=== PATIENT | female | born 1950 | race Caucasian/White ===

== ENCOUNTER 2017-04-20 11:03 | Day surgery (SDC) | payer BC ==
[2017-04-19 13:30] VITALS: BMI 30.7
[~2017-04-20] VITALS: Ht 154.9 cm; Wt 72.0 kg
[2017-04-20] VITALS (27 sets, daily range): BP systolic 102–152; BP diastolic 37–76; PULSE 58–80; RESP 16–21; Ht 154.9 cm; Wt 72.0 kg
[~2017-04-20 11:03] MED LIST: CEFAZOLIN 2 GM/50 ML (PMX) 50 ML IVPB ONE; GLYCOPYRROLATE 0.4 MG INJ ONE; NEOSTIGMINE 3 MG/3 ML SYRINGE ONE; SOD CHLORIDE 0.9% 1,000 ML IV ONE
[2017-04-20] MEDS ORDERED: CEFAZOLIN 2 GM/50 ML (PMX) 50 ML IVPB ONE (12:30)
[2017-04-20] MEDS: SOD CHLORIDE 0.9% 1,000 ML IV SCH ×2 (12:30→17:53)
[2017-04-20 13:01] LABS: ADD SCAN DIFF NO
[2017-04-20 13:03] LABS: BASOPHILS % 0.6 % (0.0-2.0); EOSINOPHILS # 0.2 10^3/ul (0.0-0.5); EOSINOPHILS % 4.7 % (0.0-7.0); HEMATOCRIT 36.2 % (37.0-47.0); HEMOGLOBIN 12.2 g/dl (12.0-16.0); LYMPHOCYTES # 2.3 10^3/ul (0.8-2.9); LYMPHOCYTES % 49.4 % (15.0-51.0); MEAN CORPUSCULAR HGB CONC 33.7 g/dl (32.0-37.0); MEAN CORPUSCULAR VOLUME 86.2 fl (82.0-101.0); MEAN PLATELET VOLUME 9.6 fl (7.4-10.4); MONOCYTE # 0.3 10^3/ul (0.3-0.9); MONOCYTES % 5.6 % (0.0-11.0); NEUTROPHIL # 1.9 10^3/ul (1.6-7.5); NEUTROPHILS % 39.7 % (39.0-77.0); PLATELET COUNT 242 10^3/UL (140-415); RED CELL DISTRIBUTION WIDTH 12.4 % (11.5-14.5); WHITE BLOOD COUNT 4.7 10^3/ul (4.8-10.8)
[2017-04-20 13:18] LABS: INR 0.93; PROTIME 12.5 Sec (12.2-14.2)
[2017-04-20 13:19] LABS: PARTIAL THROMBOPLASTIN TIME 28.7 Sec (25.0-35.0)
[2017-04-20 13:21] LABS: ALBUMIN 4.7 g/dl (3.3-4.9); ALBUMIN/GLOBULIN RATIO 1.74; BILIRUBIN,INDIRECT 0.4 mg/dl (0-1.1); BILIRUBIN,TOTAL 0.4 mg/dl (0.2-1.3); TOTAL PROTEIN 7.4 g/dl (6.1-8.1)
[2017-04-20] MEDS ORDERED: ISOSULFAN BLUE 1% 5 ML INJ SC ONE (13:22)
[2017-04-20 13:31] LABS: CALCIUM 9.2 mg/dl (8.4-10.2); CREATININE 0.7 mg/dl (0.44-1.00); POTASSIUM 3.9 mmol/L (3.5-5.1)
[2017-04-20] MEDS ORDERED: MIDAZOLAM 1 MG/ML 2 ML INJ ONE (13:49)
[2017-04-20] MEDS ORDERED: PROPOFOL 20 ML ONE (13:49)
[2017-04-20] MEDS ORDERED: VECURONIUM 10 MG VIAL ONE (13:50)
[2017-04-20] MEDS ORDERED: LIDOCAINE 2% (SDV) 5 ML INJ ONE (13:50)
[2017-04-20] MEDS ORDERED: DEXAMETHASONE 4 MG/ML 1 ML INJ ONE (13:50)
[2017-04-20] MEDS ORDERED: PHENYLephrine (100 MCG/ML) 5ML SYG ONE (13:50)
[2017-04-20] MEDS ORDERED: ONDANSETRON 4 MG INJ ONE (13:50)
--- NOTE | 2017-04-20 15:42 | RADRPT ---
Vent Rate: 65 bpm RR Interval: 0 msec SD Interval: 174 msec QRS Duration: 72 msec QT Interval: 402 msec QTC Interval: 418 msec P-R-T [place]: 45 - 5 - 27 degrees Normal sinus rhythm Low voltage QRS Cannot rule out Anterior infarct , age undetermined Abnormal ECG Electronically Signed By: Virgilio Bhandari [id number]
--- NOTE | 2017-04-20 15:52 | OPR ---
DATE OF OPERATION: 04/20/2017 PREOPERATIVE DIAGNOSIS: Invasive cancer, left breast. POSTOPERATIVE DIAGNOSIS: Invasive cancer, left breast. OPERATION PERFORMED: Left modified radical mastectomy. ANESTHESIA: General. ANESTHESIA: Nurse channel cementer, Kike . SURGEON: Reyes Clarke MD BRAKE HOLDER: Mir Mccabe MD INDICATIONS FOR PROCEDURE: The patient is a 66-year-old female who noticed a mass in her left breas t. She underwent radiographic workup and subsequent biopsy and was found to have an approximately 1 .4-cm invasive tumor on core biopsy. She was initially offered breast conservation surgery with par tial mastectomy and axillary dissection utilizing sentinel lymph node technique; however, both her a nd her family were strongly interested mastectomy, as the patient did not want to have radiation. S he requested modified radical mastectomy. She consented and was scheduled for surgery. DESCRIPTION OF PROCEDURE: The patient was brought to the operating theater and placed under general endotracheal tube anesthesia. The left breast was prepped and draped in the usual sterile fashion. A planned elliptical incision was demarcated with a marking pen around the nipple areolar complex, including the skin overlying the tumor. It was carried out with a 15 blade scalpel. The subcutaneo us tissue was dissected with cautery. The skin edges were then elevated with Allis Hubbard clamps and skin flaps were developed using cautery, first superiorly to the clavicle, then medially to the gomez rnal border, inferiorly to the inframammary fold, and laterally until the latissimus dorsi muscle wa s identified throughout its course. Mastectomy then took place from medial to lateral using cautery . At the border of the pectoralis major muscle, the pectoralis minor muscle was identified with katia nt dissection along the chest wall. The long thoracic nerve was identified and kept out of harm's w ay. More superiorly, the axillary vein and thoracodorsal neurovascular bundle were identified and k ept out of harm's way. Node-bearing tissue between the long thoracic nerve and the thoracodorsal ne rve was meticulously dissected with the LigaSure device. There were a couple of suspicious firm lym ph nodes that were sent for intraoperative analysis, which was performed by attending pathologist, Kavita Waggoner. They were negative for definite evidence of malignancy. Subsequently a decision was mad e to not take additional nodes. Therefore, the remaining connective tissue attachments to the latis simus dorsi were transected with cautery. The specimen was oriented, removed and sent for permanent pathologic analysis. The wound was irrigated. Minimal bleeding was controlled with cautery. Two #10 flat Huey-Villarreal drains were then brought through the left mid axillary line. One was cut to size and laid within the axilla, the other was cut to size and laid over the pectoralis major muscle . Both drains were secured in place with 2-0 nylon sutures. The skin was then reapproximated with skin travis. The patient tolerated procedure well. Estimated blood loss was 40 mL. There were no complications and the patient was transported in stable condition to the recovery room, where a cir cumferential compression dressing was applied. Dictated By: REYES MARCOS/RIKI Conf#: [id number] DID#: [id number]
[2017-04-20] MEDS ORDERED: OXYCODONE/ACETAMINOPHEN (5/325) TAB PO PRN ×2 (16:00)
[2017-04-20] MEDS ORDERED: ACETAMINOPHEN 1000MG/100ML IV 100 ML IVPB PRN (16:00)
[2017-04-20] MEDS ORDERED: ONDANSETRON 4 MG INJ IV PRN ×2 (16:00)
[2017-04-20] MEDS ORDERED: EPHEDrine SULFATE 50 MG/5 ML SYG IV PRN (16:00)
[2017-04-20] MEDS ORDERED: HYDROmorphONE (0.2 MG/ML) 10ML SYG IV PRN ×3 (16:00)
[2017-04-20] MEDS ORDERED: LABETALOL HCL 20MG INJ IV PRN (16:00)
[2017-04-20] MEDS ORDERED: morphine 2 MG INJ IV PRN (16:00)
[2017-04-20] MEDS ORDERED: METOCLOPRAMIDE 10 MG INJ IV PRN (16:00)
[2017-04-20] MEDS: D5W-0.45 NACL + KCL 20 MEQ 1,000 ML IV SCH ×2 (17:53→23:39)
--- NOTE | 2017-04-20 18:04 | RADRPT ---
PROCEDURE: XR Chest. CLINICAL INDICATION: Shortness of breath. Postop. TECHNIQUE: Single frontal view. COMPARISON: None. FINDINGS: There is mild atelectasis at the lung bases with right worse than left. The lungs are otherwise moise ar. There has been left-sided thoracic surgery with multiple skin travis and surgical drain noted. The heart size is normal. There is no pleural effusion. There is no pneumothorax. IMPRESSION: 1. Mild atelectasis at the lung bases with right worse than left. 2. Prior left-sided thoracic surgery. 3. Otherwise normal chest x-ray. RPTAT: QQ .Kb Reyes MD, MD Date Time Electronically viewed and signed by .Kb Reyes MD, MD on 04/20/2017 18:04 .R/
--- NOTE | 2017-04-20 18:52 | HP ---
DATE OF ADMISSION: 04/20/2017 CHIEF COMPLAINT AND HISTORY OF PRESENT ILLNESS: The patient is a 66-year-old female who was seen b ezra Clarke as an outpatient. The patient noticed a left breast mass and subsequently underwent wor kup which included biopsy and was found to have invasive tumor. The patient was brought in to [facility] today and underwent left modified radical mastectomy. The patient does have postoperative pain and is being admitted for further evaluation and management. The patient denied any recent fever or chills. No history of vomiting. No history of diarrhea. No previous history of coronary artery d isease, hypertension or diabetes. The patient has a history of some sort of thyroid disorder, detai ls not available. The patient was not on any medication. No reported leg edema. No reported resti ng leg pain. PAST SURGICAL HISTORY: None. ALLERGIES: NONE. SOCIAL HISTORY: No smoking, no alcohol. FAMILY HISTORY: Noncontributory. PHYSICAL EXAMINATION: GENERAL: The patient is conscious, awake, alert. VITAL SIGNS: Temperature 98.3, pulse 66, respirations 18, blood pressure 102/54, O2 saturation 99% on room air. HEENT: No eye discharge or redness. Nose and ears normal externally. Oropharynx clear. NECK: No mass. LUNGS: Clear to auscultation. CARDIOVASCULAR: S1, S2 normal. No murmur. ABDOMEN: Soft, nondistended, nontender. EXTREMITIES: No leg edema. Pedal pulses palpable. SKIN: Without rash. NEUROLOGIC: The patient is awake, alert with no gross focal deficit. LABORATORY DATA: WBC 4.7, hemoglobin 12.2, platelets 242. Sodium 143, potassium 3.9, BUN 16, creat inine 0.7, glucose 103. AST 29, ALT 48, alkaline phosphatase 106. The patient did not have any preop chest x-ray, however, patient did have a postoperative chest x-ra y which revealed mild atelectasis in the left base. IMPRESSION: Left breast invasive cancer, status post left modified radical mastectomy. PLAN: The patient admitted on medical floor. The patient will be started on clear liquid diet, whi ch will be advanced as tolerated. I have explained to the patient's family as well as the patient's nurse to use incentive spirometry every 1 hour while awake. We will obtain TSH and T4 tomorrow. F or deep venous thrombosis prophylaxis, the patient will have SCD. For pain control, the patient calin l be started on IV Tylenol, Percocet and IV morphine. Plan of care discussed with nursing staff as well as patient's family. Dictated By: ADENIKE LOCKETT/RIKI Conf#: [id number] DID#: [id number]
[2017-04-21 01:30] VITALS: BP 103/50; PULSE 64; RESP 16
[2017-04-21] MEDS: D5W-0.45 NACL + KCL 20 MEQ 1,000 ML IV SCH ×3 (02:37→15:39)
[2017-04-21 05:30] VITALS: BP 107/53; PULSE 64; RESP 16
[2017-04-21 08:50] VITALS: BP 115/53; RESP 17
--- NOTE | 2017-04-21 13:45 | PN ---
DATE: 04/21/2017 Status post left modified radical mastectomy with axillary dissection for the invasive cancer of the left breast. SUBJECTIVE: Does not have any specific complaint. She feels okay, comfortable. OBJECTIVE: GENERAL: The patient is awake, alert, oriented x3. VITAL SIGNS: Temperature 98.1, heart rate 71, respirations 17, blood pressure 115/63, saturation 9 5% on room air. I's and O's : Overnight drainage from 2 Huey-Villarreal drains at least 45 mL. Today morning since 6 :00 there is about 30 mL, though. It is serosanguineous. Dressing is intact. The patient moves he r left arm and fingers completely. PLAN: The patient is stable, she can be discharged today. The nurse is going to teach the patient how to take care of the Huey-Villarreal drains, how to empty them and how to make them function and to record and to tell her daughter. Actually, I called her daughter and I told her that every night t hey should empty that and record the drainage on a piece of paper so that when they go for followup with Dr. Clarke' office they can show it and they can make a decision on that basis when to remove th e Huey-Villarreal drains. The patient is supposed to see Dr. Clarke next Monday in the office. Dictated By: VICENTA CROWELL/RIKI Conf#: [id number] DID#: [id number]
[2017-04-21] MEDS ORDERED: HYDR-906 PO (16:09)
[2017-04-21] MEDS ORDERED: DOCU-144 PO (16:11)
--- NOTE | 2017-04-22 13:51 | DS ---
DATE OF ADMISSION: 04/20/2017 DATE OF DISCHARGE: 04/21/2017 FINAL DIAGNOSES: Invasive cancer of the left breast, status post left modified radical mastectomy. BRIEF HISTORY: The patient is a 66-year-old female who was diagnosed with cancer of the left breast . The patient was brought to the hospital and underwent left modified radical mastectomy. The josué ent had postoperative pain and is being admitted for further evaluation and management. The patient was given Tylenol and Motrin p.r.n. for pain and Zofran p.r.n. for nausea. The patient's condition gradually improved and the patient was discharged home. CONDITION ON DISCHARGE: Hemodynamically stable. ACTIVITY: As patient tolerates. DIET: Regular diet. DISCHARGE MEDICATIONS: The patient was given a prescription for Immaculata p.r.n. for pain. The patient was also given a prescription for Colace. The patient was instructed to follow up with Dr. Clarke in postoperative appointment on Monday, April 25. Interdisciplinary care was established for this patient. Plan of care was discussed with Dr Tigre Morel. Dictated By: ZEHRA SANCHEZ BOX STRAPPER for ADENIKE MOREL MD SR/NTS Conf#: [id number] DID#: [id number]
== END 2017-04-21 18:31 | disposition home or self-care (01) ==
LOC: SDS 11:03 → PP2 17:18 → SDS 04-21 18:31
PROVIDERS: ATTEND Surgery Surgical Oncology
DX: C50.912 Malignant neoplasm of unspecified site of left female breast (principal); C77.3 Secondary and unspecified malignant neoplasm of axilla and upper limb lymph nodes
CPT/HCPCS: 19307; 38792; 71010; 80053; 85025; 85610; 85730; 88305; 88309; 93005; J0131; J1100; J2250; J2405; J2710; J3010; J3480; Z7512; Z7610; J2370; Q9968